=== PATIENT | male | born 1995 ===

== ENCOUNTER 2019-06-18 12:03 | Emergency (ER) | payer SELFPAY ==
[2019-06-18 12:13] VITALS: BP 154/91
--- NOTE | 2019-06-18 12:17 | Emergency Department Report ---
Chief Complaint: Fever Stated Complaint: HEADACHE/FEVER/RAPID HR Time Seen by Provider: 06/18/19 12:11 - HPI History of Present Illness: 24 y/o male presents wtih continued nasal congestion and sinus pressure with heacache. seen PCP yesterday and given medicine but symptoms has not resolved and since is sister is here in the ER today he decided to be re-evaluated. No progression in symptoms. No active fever, chest pain, sob, hemoptysis, nausea or vomiting. No chest pain or abdominal pain. No travel or contact with travelers. - ROS Review of Systems: as per HPI - Exam Vital Signs: Vital Signs 06/18/19 06/18/19 12:09 12:10 Temperature 97.5 F L Pulse Rate 71 66 Respiratory 18 Rate Blood Pressure 154/91 O2 Sat by Pulse 99 100 Oximetry Physical Exam: Vital signs stable General: Patient is well nourished, well developed, awake and alert, resting comfortably in no acute distress Head: Normocephalic and atraumatic Eyes: Normal inspection, extraocular muscles intact, no conjunctival pallor Ear, nose, throat: Normal external exam Neck: Normal range of motion Respiratory: Patient is in no respiratory distress, lungs CTAB Cardiovascular: Patient is not tachycardic, RRR without murmur appreciated GI: Abd SNT with no guarding or rebound; +BS normoactive x 4, no tympanny to percussion Back: Normal inspection of the back with good strength and range of motion throughout all ext Extremities: pulses intact with good cap refills, no LE pitting edema or calf tenderness Neuro: The patient is alert and oriented to person, place, and time, appropriately conversive, with 5/5 bilat UE/LE strength, no gross motor or sensory defects noted. Coordination appears to be adequate. Skin: Warm, dry, and intact MSE screening note: Focused history and physical exam performed. Due to findings the following was ordered: ED Disposition for MSE Clinical Impression: Nasal sinus congestion Disposition: DC- TO HOME OR SELFCARE Condition: Stable Instructions: Allergic Rhinitis (ED), Cold Symptoms (ED), Upper Respiratory Infection (ED) Additional Instructions: Continue your medicine given by your doctor yesterday. Be sure to follow up in 2-3 days. Referrals: PRIMARY CARE,MD [Referring] - 2-3 Days (Be sure to follow up with your PCP as we discussed via crossword puzzle maker. ) Print Language: GUINEAN
== END 2019-06-18 12:23 | disposition left against medical advice (07) ==
LOC: ED 12:03
DX: R09.81 Nasal congestion (principal); Z88.0 Allergy status to penicillin
CPT/HCPCS: 99282